=== PATIENT | female | born 1970 | race Native Hawaiian/Other Pacific Islander ===

== ENCOUNTER 2020-08-17 12:13 | Outpatient (CLI) | payer BC, OTHER | END 2020-08-17 23:58 | disposition home or self-care (01) | LOC: INF 12:13 | PROVIDERS: ATTEND Internal Medicine | DX: Z23 Encounter for immunization (principal) | CPT/HCPCS: 96372 ==

== ENCOUNTER 2020-09-14 09:51 | Outpatient (CLI) | payer BC, OTHER | END 2020-09-14 21:44 | disposition home or self-care (01) | LOC: INF 09:51 | PROVIDERS: ATTEND Internal Medicine | DX: Z23 Encounter for immunization (principal) | CPT/HCPCS: 96372 ==